=== PATIENT | female | born 1950 | race Caucasian/White ===

== ENCOUNTER → 2016-06-08 | Outpatient (CLI) | payer MEDICARE ==
[2014-01-16 14:00] VITALS: BP 136/68
[~2016-06-08] MED LIST: BYSTOLIC5 MG PO; DIPH1TAB5 PO; LISI10TA2 PO; LORA0.5T PO; MIRT30TA3 PO; MIRT30TA5 PO; OMEP40CA5 PO; PRAM1TAB5 PO; TIOT18CA IH; TRAM50TA PO; ZOLP10TA PO
--- NOTE | 2016-06-17 13:29 | KCIC ---
Bilateral digital screening mammograms with CAD: HISTORY Routine screening COMPARISON Comparison is made to previous examinations dated back to 03/12/2008. FINDINGS Breast density category C. The skin and nipples show no abnormalities. No abnormal lymph nodes are seen in the axilla. The breast parenchyma shows heterogeneous density. There are some clustered calcifications located in the 9 o'clock B position of the left breast which are not definitely changed. There are no other dominant masses, suspicious calcifications or architectural distortions. IMPRESSION No evidence of malignancy. Recommend routine mammographic followup. This study was interpreted with the benefit of Computerized Aided Detection (CAD). Mammography is not 100% sensitive in detecting breast cancer. Therefore, a self breast exam and a clinical breast exam are very important. A negative mammogram does not negate a clinically suspicious finding and should not result in a delay in biopsying a clinically suspicious abnormality. BI-RADS category 2: Benign. This patient's information has been entered into a reminder system for the patient to be notified with the results of this examination and a target date for her next mammograms. Electronically signed by: Fiona Aaron MD (Jun 17, 2016 13:28:20)
== END | disposition home or self-care (01) ==
LOC: KCIC MAMMO 14:37
PROVIDERS: ATTEND Obstetrics & Gynecology
DX: Z12.31 Encounter for screening mammogram for malignant neoplasm of breast (principal)
CPT/HCPCS: 77052; G0202; 77067